=== PATIENT | female | born 2000 | race American Indian/Alaskan Native ===

== ENCOUNTER 2021-12-21 21:55 | Emergency (ER) | payer SELFPAY ==
[~2021-12-21] VITALS: Ht 162.6 cm; Wt 61.8 kg
[2021-12-21 23:55] VITALS: BP 117/74; PULSE 89; TEMP 97.4
== END 2021-12-22 04:49 | disposition home or self-care (01) ==
LOC: COL.ER 21:55
DX: J06.9 Acute upper respiratory infection, unspecified (principal); H10.33 Unspecified acute conjunctivitis, bilateral; Z20.822 Contact with and (suspected) exposure to COVID-19; Z28.311 Partially vaccinated for COVID-19

== ENCOUNTER 2021-12-27 21:35 | Emergency (ER) | payer SELFPAY ==
[~2021-12-27] VITALS: Ht 162.6 cm; Wt 61.8 kg
[2021-12-27 21:59] VITALS: BP 109/58; TEMP 98.3
[2021-12-27] MEDS ORDERED: ZITHROMAX Z PA250 MG PO (22:26)
[2021-12-27 22:49] VITALS: PULSE 97
== END 2021-12-27 22:49 | disposition home or self-care (01) ==
LOC: COL.ER 21:35
DX: J06.9 Acute upper respiratory infection, unspecified (principal); Z28.311 Partially vaccinated for COVID-19

== ENCOUNTER 2023-09-06 20:15 | Emergency (ER) | payer SELFPAY ==
[~2023-09-06] VITALS: Ht 167.6 cm; Wt 67.3 kg
[~2023-09-06 20:15] MED LIST: TESSALON P100 MG/CAP PO; ZITHROMAX Z PA250 MG PO
[2023-09-06 20:21] VITALS: TEMP 98.3
[2023-09-06 21:45] VITALS: BP 108/68; PULSE 72
== END 2023-09-06 21:45 | disposition home or self-care (01) ==
LOC: COL.ER 20:15
DX: U07.1 COVID-19 (principal); R05.9 Cough, unspecified; R09.81 Nasal congestion; R07.89 Other chest pain; R00.0 Tachycardia, unspecified

== ENCOUNTER → 2024-05-17 | Outpatient (CLI) | payer SELFPAY | LOC: COL.RAD 05-14 16:30 | DX: R94.5 Abnormal results of liver function studies (principal) ==